=== PATIENT | female | born 1960 | race Caucasian/White ===

== ENCOUNTER 2020-11-07 16:41 | Outpatient (CLI) | payer BC, SELFPAY ==
--- NOTE | ~2020-11-07 | XR_ITS ---
XR foot LT min 3V DATE: 11/07/2020 17:01 INDICATION: Left fifth metatarsal pain and swelling following a fall on 10/13/2020. TECHNIQUE: 4 views COMPARISON: None FINDINGS: Prominent plantar and posterior calcaneal enthesopathy. There is modest arthritis at the first metatarsophalangeal joint and mild hallux valgus and bunion de formity. No fracture or dislocation, periosteal reaction or bone destruction is evident. IMPRESSION: Plantar and posterior calcaneal enthesopathy Osteoarthritis at first metatarsophalangeal joint Mild hallux valgus and bunion deformity Reviewed, dictated and finalized at location A. ADER OPERATOR AUTOMATIC
== END 2020-11-07 16:42 | disposition home or self-care (01) ==
PROVIDERS: PCP Family Medicine; Visit Provider Nurse Practitioner Family
DX: M19.072 Primary osteoarthritis, left ankle and foot (principal); M20.12 Hallux valgus (acquired), left foot
CPT/HCPCS: 73630

== ENCOUNTER 2021-05-18 16:02 | Outpatient (CLI) | payer BC, SELFPAY ==
--- NOTE | ~2021-05-18 | MM_ITS ---
EXAMINATION: MM screening josee BI w tricia HISTORY: Screening TECHNIQUE: Craniocaudal and mediolateral oblique 3-D tomosynthesis images were obtained and synthetic 2-D images were generated. CAD analysis was submitted and interpreted. COMPARISON: 05/15/2019 BREAST PARENCHYMAL COMPOSITION: Breast composed of scattered areas of fibroglandular density FINDINGS: There are developing subareolar asymmetries in the right breast. The left breast is stable without evidence for malignancy IMPRESSION: 1. Developing right breast subareolar asymmetries. 2. Additional mammographic views and possible breast ultrasound are recommended. BI-RADS Category 0: Incomplete: Needs additional imaging evaluation. Reviewed, dictated and finalized at location A. IMPRESSION: 1. Developing right breast subareolar asymmetries. 2. Additional mammographic views and possible breast ultrasound are recommended . BI-RADS Category 0: Incomplete: Needs additional imaging evaluation.
== END 2021-05-18 16:03 | disposition home or self-care (01) ==
PROVIDERS: PCP Family Medicine; Visit Provider Obstetrics & Gynecology
DX: Z12.31 Encounter for screening mammogram for malignant neoplasm of breast (principal); R92.8 Other abnormal and inconclusive findings on diagnostic imaging of breast
CPT/HCPCS: 77063; 77067

== ENCOUNTER 2022-01-24 12:33 | Outpatient (CLI) | payer OTHER, SELFPAY ==
--- NOTE | ~2022-01-24 | MMUS_ITS ---
EXAMINATION: MM diagnostic josee RT w tricia, US breast RT complete HISTORY: Developing right breast subareolar asymmetry reported on 05/18/2021 screening mammogram examin ation TECHNIQUE: Full field and spot ML, MLO and CC 3-D tomosynthesis images of the right breast were perfo rmed and synthetic 2-D images were generated. CAD analysis was submitted and interpreted. High resolu tion complete left breast ultrasound examination including all 4 quadrants and subareolar area was pe rformed. COMPARISON: 05/18/2021, 05/15/2019 bilateral screening mammogram examinations BREAST PARENCHYMAL COMPOSITION: There are scattered areas of fibroglandular density. FINDINGS: MAMMOGRAPHIC FINDINGS: There is some asymmetric increased density in the anterior upper outer left breast. Right breast ultr asound examination was performed. No suspicious mass, architectural distortion, malignant calcification, skin thickening or retraction is noted otherwise. ULTRASOUND: No suspicious mass, shadowing, vascularity or other significant abnormality of the right breast is ev ident. IMPRESSION: 1. No mammographic evidence of malignancy 2. Routine annual mammographic screening is recommended. BI-RADS Category 1: Negative Reviewed, dictated and finalized at location A. IMPRESSION: 1. No mammographic evidence of malignancy 2. Routine annual mammographic screening is recommended. BI-RADS Category 1: Negative
== END 2022-01-24 12:34 | disposition home or self-care (01) ==
PROVIDERS: PCP Family Medicine; Visit Provider Obstetrics & Gynecology
DX: R92.8 Other abnormal and inconclusive findings on diagnostic imaging of breast (principal)
CPT/HCPCS: 76641; 77061; 77065; G0279

== ENCOUNTER 2023-02-27 11:12 | Outpatient (CLI) | payer OTHER, SELFPAY ==
--- NOTE | ~2023-02-27 | XR_ITS ---
Clinical Indication: Cough PA and lateral views of the chest: Comparison: None Findings: The lungs are clear, without evidence of focal consolidation or pleural effusion. Cardiome diastinal silhouette is within normal limits. Bones and soft tissues are unremarkable. Impression: Normal chest. Reviewed, dictated and finalized at location . Impression: Normal chest.
== END 2023-02-27 11:13 | disposition home or self-care (01) ==
PROVIDERS: PCP Family Medicine; Visit Provider Physician Assistant
DX: R05.9 Cough, unspecified (principal)
CPT/HCPCS: 71046

== ENCOUNTER 2023-09-04 10:07 | Emergency (ER) | payer OTHER, SELFPAY ==
--- NOTE | ~2023-09-04 | XR_ITS ---
EXAMINATION: XR foot RT min 3V DATE: 09/04/2023 11:06 INDICATION: Right foot pain and swelling TECHNIQUE: Dorsoplantar, lateral, and 2 oblique views of the right foot were obtained. COMPARISON: None. FINDINGS: There is an acute nondisplaced transverse fracture of the lateral malleolus. No acute osseo us abnormality is identified in the foot. There is mild osteoarthritis of multiple interphalangeal elaine ints as well as the first metatarsophalangeal joint. IMPRESSION: 1. No acute osseous abnormality of the foot. 2. Nondisplaced transverse fracture of the lateral malleolus. Reviewed, dictated and finalized at location F. MOLDER
--- NOTE | ~2023-09-04 | XR_ITS ---
EXAMINATION: XR ankle RT min 3V INDICATION: Right ankle pain TECHNIQUE: Four views of the right ankle are obtained. COMPARISON: None available FINDINGS: There is diffuse soft tissue swelling of the right ankle. There is subtle transverse lucenc y of the lateral malleolus below the tibial plafond. No additional fracture is identified. A posterio r calcaneal enthesophyte is noted. IMPRESSION: 1. Acute nondisplaced fracture of the lateral malleolus. Reviewed, dictated and finalized at location F. CIATE PROPERTY MANAGER
[2023-09-04 10:46] VITALS: BP 196/112; PULSE 63; RESP 16; TEMP 37; O2SAT 100
--- NOTE | 2023-09-04 11:25 | ED.LOWEXIN ---
HPI - Extremity Injury (Lower) General Chief Complaint: Extremity Injury, Lower Stated Complaint: Rt ankle Time Seen by Provider: 09/04/23 10:39 Source: patient Mode of arrival: ambulatory Limitations: no limitations History of Present Illness HPI Narrative: Patient is a 63 y/o female who presents to the ED with c/o R ankle pain. Patient reports she was walking [place] on [place] when she accidentally stepped into a hidden hole in the ground. She felt a pop in her right ankle and had pain afterwards. She returned home today and prompted here. She has had pain with ambulating, otherwise denies significant pain. Reports swelling to the ankle and foot. Denies numbness or tingling. Related Data Home Medications Medication Instructions Recorded Confirmed cetirizine 10 mg tablet (Zyrtec) 10 mg PO DAILY 03/22/20 01/01/23 Allergies Allergy/AdvReac Type Severity Reaction Status Date / Time amoxicillin Allergy Unknown unknown Verified 09/04/23 10:46 lisinopril Allergy Unknown unknown Verified 09/04/23 10:46 Penicillins Allergy Unknown unknown Verified 09/04/23 10:46 ibuprofen AdvReac Intermediate facial Verified 09/04/23 10:46 [From NeoProfen (ibuprofen edema lysn)(PF)] Review of Systems Review of Systems: CONSTITUTIONAL: Denies fever, chills, or sweats. SKIN: See HPI. MUSCULOSKELETAL: See HPI. NEUROLOGIC: Denies tingling, numbness, or weakness. All systems reviewed & are unremarkable except as noted in HPI and below PMFSH Past Medical History Medical History Obesity Surgical History Surgical History History of eye surgery History of ventral hernia repair Family History Family History Father Family history of Parkinson's disease Family history of cardiovascular disease Sibling Asthma Social History Social History Smoking status: Never smoker Second hand tobacco smoke exposure: No Alcohol intake: never Substance use: never Substance use type: does not use Living arrangements: with family Occupation/Education: occupation Gender identity (if verbalized by the patient): Female Exam Narrative: GENERAL: Well appearing, Obese with BMI of 34.3, non-toxic, in no acute distress. HEAD: Normocephalic, atraumatic. NECK: Supple. No adenopathy, no masses. RESPIRATORY: Airway patent, respirations nonlabored. Clear to auscultation bilaterally, no rales, rhonchi, wheezing. CARDIOVASCULAR: Regular rate and rhythm without murmurs, rubs, or gallops. Pedal pulses 2+ and equal bilaterally. MUSCULOSKELETAL: Moves all extremities. Diffuse swelling throughout right anterior lateral ankle into dorsal foot. Tenderness to palpation over R lateral malleoli. Sensation intact. Good capillary refill. Able to wiggle toes. SKIN: Warm, dry, normal color. No rashes. NEURO: A&O X3. Speech clear. Cranial nerves II-XII grossly intact. No ataxic movements. PSYCHIATRIC: Appropriate mood and affect. Normal interaction. Course Vital Signs Vital signs: Vital Signs Temperature 98.6 F 09/04/23 10:46 Pulse Rate 63 09/04/23 10:46 Respiratory Rate 16 09/04/23 10:46 Blood Pressure 196/112 H 09/04/23 10:46 Pulse Oximetry 100 09/04/23 10:46 Oxygen Delivery Room Air 09/04/23 10:46 Temperature 98.6 F 09/04/23 10:46 Pulse Rate 62 09/04/23 12:03 Respiratory Rate 18 09/04/23 12:03 Blood Pressure 186/108 H 09/04/23 12:03 Pulse Oximetry 100 09/04/23 12:03 Oxygen Delivery Room Air 09/04/23 10:46 MDM - Extremity Injury (Lower) MDM Narrative Medical decision making narrative: Patient's injury is consistent with musculoskeletal etiology. No signs of neurologic or vascular compromise on physical examination. Compartme
[2023-09-04 11:50] VITALS: BP 220/103; PULSE 60; RESP 18; O2SAT 100
[2023-09-04 12:03] VITALS: BP 186/108; PULSE 62; RESP 18; O2SAT 100
== END 2023-09-04 12:05 | disposition home or self-care (01) ==
PROVIDERS: Emergency Provider Physician Assistant; PCP Family Medicine
DX: S82.64XA Nondisplaced fracture of lateral malleolus of right fibula, initial encounter for closed fracture (principal); E66.9 Obesity, unspecified; Z68.34 Body mass index [BMI] 34.0-34.9, adult; X50.9XXA Other and unspecified overexertion or strenuous movements or postures, initial encounter
CPT/HCPCS: 29515; 73610; 73630; 99284

== ENCOUNTER 2023-09-09 16:32 | Outpatient (CLI) | payer OTHER, SELFPAY ==
--- NOTE | ~2023-09-09 | US_ITS ---
EXAMINATION: US venous doppler LE RT DATE: 09/09/2023 17:12 INDICATION: Right lower limb swelling. TECHNIQUE: Grayscale ultrasound images without and with compression and Doppler ultrasound images of the right lower extremity veins were obtained. COMPARISON: None. FINDINGS: The visualized portions of right common femoral vein, profunda (deep) femoral vein, femoral vein, pop liteal vein, peroneal veins, posterior tibial veins, and greater saphenous vein outflow are patent. IMPRESSION: 1. No deep venous thrombosis. Reviewed, dictated and finalized at location A. HEN UTILITY ASSOCIATE
== END 2023-09-09 16:33 | disposition home or self-care (01) ==
PROVIDERS: PCP Family Medicine; Visit Provider Orthopaedic Surgery
DX: R60.0 Localized edema (principal)
CPT/HCPCS: 93971

== ENCOUNTER 2024-10-21 02:16 | Day surgery (SDC) | payer OTHER, SELFPAY ==
[2024-09-28 14:17] VITALS: BMI 34.4
[2024-10-21 10:09] VITALS: BP 150/94; PULSE 73; RESP 18; TEMP 36.1; O2SAT 100
[2024-10-21] MEDS: LACTATED RINGERS 1,000 ML 150 ML IV CONT (10:19)
--- NOTE | 2024-10-21 10:29 | WPDANESEPPF ---
Anes - Initial Pre Proc Eval Procedure: Operation Date: 10/21/24 11:30 Proposed Procedures p Screening Colonoscopy - Aquiles Samayoa MD Date/Time: 10/21/24 10:29 Surgeon: Aquiles Samayoa MD Pre Op Diagnosis: Screening for malignant neoplasm of rectum Patient Data Age: 64 Gender: F Height: 1.63 m Weight: 90.9 kg Last Vital Signs Temp 36.1 C L 10/21/24 10:09 Pulse 73 10/21/24 10:09 Resp 18 10/21/24 10:09 BP 150/94 H 10/21/24 10:09 Pulse Ox 100 10/21/24 10:09 O2 Del Method Room Air 10/21/24 10:09 Allergies Allergy/AdvReac Type Severity Reaction Status Date / Time amoxicillin Allergy Unknown unknown Verified 09/28/24 14:12 lisinopril Allergy Unknown unknown Verified 09/28/24 14:12 Penicillins Allergy Unknown unknown Verified 09/28/24 14:12 ibuprofen (From NeoProfen AdvReac Intermediate facial Verified 09/28/24 14:12 (ibuprofen lysn)(PF)) edema Home Medications ?Medication ?Instructions ?Recorded ?Confirmed ?Type levothyroxine 88 mcg tablet 88 mcg PO DAILY #1 tablet 11/05/19 10/21/24 Rx cetirizine 10 mg tablet (Zyrtec) 10 mg PO DAILY 03/22/20 10/21/24 History albuterol sulfate 90 mcg/actuation 1 inh inhalation Q4H PRN shortness 01/01/23 09/28/24 Rx aerosol inhaler of breath or wheezing #8.5 grams metoprolol succinate 25 mg See Rx Instructions .Route 05/16/24 10/21/24 Rx tablet,extended release 24 hr .COMPLEX #90 tabs valsartan 80 mg tablet 80 mg PO DAILY #90 tabs 09/07/24 10/21/24 Rx cholecalciferol (vitamin D3) 50 50 mcg PO DAILY 09/28/24 10/21/24 History mcg (2,000 unit) tablet (Vitamin D3) diphenhydramine HCl 25 mg tablet 25 mg PO HS 09/28/24 10/21/24 History (Benadryl Allergy) multivitamin (Daily Multi-Vitamin 1 tablet PO DAILY 09/28/24 10/21/24 History tablet) Patient hx anesthesia problems: none Family hx anesthesia problems: none Results Review: All pre-operative results and documents have been reviewed as part of the pre-operative evaluation. COUNTS INCLUDE 234 BEDS AT THE [facility] Past Medical History Medical History (Updated 10/21/24 @ 10:30 by Anurag Méndez MD) Acquired hypothyroidism Essential hypertension Closed right ankle fracture s/p repair Obesity Surgical History Surgical History History of eye surgery History of ventral hernia repair Family History Family History Father Family history of Parkinson's disease Family history of cardiovascular disease Sibling Asthma Social History Social History Smoking status: Never smoker Second hand tobacco smoke exposure: No Alcohol intake: never Substance use: never Substance use type: does not use Do You Feel Safe in your Home?: Yes Lack of Transportation: No Lack of Food: Never True Current Housing: I Have Housing Concerned About Future Housing: No Difficulty Paying Gas/Electric Bills: No Difficulty Paying for Meds: No Currently Unemployed: No Education: High School Diploma/GED Living arrangements: with family Occupation/Education: occupation Gender identity (if verbalized by the patient): Female Spiritual care concerns: No Anes - Eval Final PreProcedure Day of Procedure 10/21/24 10:29 Patient weight: obese Heart: regular rate and rhythm Lungs: clear to auscultation Airway: Mallampati scale class II Neurological: alert and oriented Last oral intake: >/= 8 hours ASA classification: II Emergent: no Anesthetic plan: proceed Anesthesia type and monitoring: general GIVS and standard monitoring Results Review: All pre-operative results and documents have been reviewed as part of the pre-operative evaluation. Informed Consent: The patient's anesthetic plan and its attendant risks and benefits were discussed with the patient/family/POA. Questions were solicited and answers provided to the satisfaction of the patient/family/POA.
--- NOTE | 2024-10-21 11:02 | P.HP_ITS ---
H&P: HPI History of Present Illness Date/Time: 10/21/24 11:02 Chief Complaint: History of colon polyps Narrative: The patient has a history of colonic polyps, the last colonoscopy was 5 years ago Review of Systems Review of Systems: All systems reviewed & are unremarkable except as noted in HPI and below PMFSH Past Medical History Medical History (Updated 10/21/24 @ 11:03 by Aquiles Samayoa MD) Acquired hypothyroidism Essential hypertension Closed right ankle fracture s/p repair Obesity Surgical History Surgical History History of eye surgery History of ventral hernia repair Family History Family History Father Family history of Parkinson's disease Family history of cardiovascular disease Sibling Asthma Social History Social History Smoking status: Never smoker Second hand tobacco smoke exposure: No Alcohol intake: never Substance use: never Substance use type: does not use Do You Feel Safe in your Home?: Yes Lack of Transportation: No Lack of Food: Never True Current Housing: I Have Housing Concerned About Future Housing: No Difficulty Paying Gas/Electric Bills: No Difficulty Paying for Meds: No Currently Unemployed: No Education: High School Diploma/GED Living arrangements: with family Occupation/Education: occupation Gender identity (if verbalized by the patient): Female Spiritual care concerns: No Meds Home Medications and Allergies Home Medications ?Medication ?Instructions ?Recorded ?Confirmed ?Type levothyroxine 88 mcg tablet 88 mcg PO DAILY #1 tablet 11/05/19 10/21/24 Rx cetirizine 10 mg tablet (Zyrtec) 10 mg PO DAILY 03/22/20 10/21/24 History albuterol sulfate 90 mcg/actuation 1 inh inhalation Q4H PRN shortness 01/01/23 09/28/24 Rx aerosol inhaler of breath or wheezing #8.5 grams metoprolol succinate 25 mg See Rx Instructions .Route 05/16/24 10/21/24 Rx tablet,extended release 24 hr .COMPLEX #90 tabs valsartan 80 mg tablet 80 mg PO DAILY #90 tabs 09/07/24 10/21/24 Rx cholecalciferol (vitamin D3) 50 50 mcg PO DAILY 09/28/24 10/21/24 History mcg (2,000 unit) tablet (Vitamin D3) diphenhydramine HCl 25 mg tablet 25 mg PO HS 09/28/24 10/21/24 History (Benadryl Allergy) multivitamin (Daily Multi-Vitamin 1 tablet PO DAILY 09/28/24 10/21/24 History tablet) Allergies Allergy/AdvReac Type Severity Reaction Status Date / Time amoxicillin Allergy Unknown unknown Verified 09/28/24 14:12 lisinopril Allergy Unknown unknown Verified 09/28/24 14:12 Penicillins Allergy Unknown unknown Verified 09/28/24 14:12 ibuprofen (From NeoProfen AdvReac Intermediate facial Verified 09/28/24 14:12 (ibuprofen lysn)(PF)) edema Vital Signs Vital Signs - 24 hr 10/21/24 10:09 Temperature 97 F L Pulse Rate 73 Respiratory Rate 18 Blood Pressure 150/94 H Pulse Oximetry 100 Oxygen Delivery Room Air Exam Const: General: cooperative and healthy appearing Resp: Effort & Inspection: normal respiratory effort and able to speak in complete sentences Auscultation: clear to auscultation bilaterally Cardio: Rate: regular rate Rhythm: regular rhythm GI: Inspection: normal to inspection GI Palp: No No hepatosplenomegaly present Auscultation: normal bowel sounds Rectal Exam: deferred Skin: General skin exam: normal color Psych: Appearance: grossly normal Mental Status: mental status grossly norm al Assessment and Plan Assessment and plan (1) History of colonic polyps: Code(s): Z86.0100 - Personal history of colon polyps, unspecified Status: Acute Assessment and Plan: The patient is deemed a good candidate for the procedure. Consent signed. Will proceed.
[2024-10-21 11:35] VITALS: BP 114/68; PULSE 69; RESP 16; O2SAT 99
[2024-10-21 11:45] VITALS: BP 128/76; PULSE 65; RESP 20; O2SAT 100
[2024-10-21 11:55] VITALS: BP 147/97; PULSE 66; RESP 14; O2SAT 100
--- NOTE | 2024-10-21 12:38 | SUR.PHASEII ---
Patient stated to be nauseous, patient had saltine crackers and the nausea subsided.
== END 2024-10-21 12:38 | disposition home or self-care (01) ==
PROVIDERS: PCP Family Medicine; Visit Provider Internal Medicine Gastroenterology
PROC: 0DJD8ZZ Inspection of Lower Intestinal Tract, Via Natural or Artificial Opening Endoscopic (ICD-10-PCS; CPT 45378; principal; 2024-10-21 11:30)
DX: Z12.11 Encounter for screening for malignant neoplasm of colon (principal); K64.8 Other hemorrhoids; E03.9 Hypothyroidism, unspecified; I10 Essential (primary) hypertension; E66.9 Obesity, unspecified; Z68.34 Body mass index [BMI] 34.0-34.9, adult; Z79.51 Long term (current) use of inhaled steroids; Z98.890 Other specified postprocedural states; Z86.0100 Personal history of colon polyps, unspecified; Z82.49 Family history of ischemic heart disease and other diseases of the circulatory system
CPT/HCPCS: 45378; J2003; J2704; J7120